=== PATIENT | female | born 1960 | race Caucasian/White ===

== ENCOUNTER → 2021-08-15 08:24 | Outpatient (CLI) | payer OTHER, SELFPAY ==
[2021-08-15 09:32] LABS: Add Manual Diff / Slide Review NO; Basophils Absolute Auto 0 /uL (0-100); Basophils Percent Auto 0.6 % (0-2); Eosinophils Absolute Auto 100 /uL (0-450); Eosinophils Percent Auto 1.3 % (2-4); Hematocrit 36.3 % (36-46); Hemoglobin 12.1 g/dL (12.0-16.0); Lymphocytes Absolute Auto 2900 /uL (1100-4500); Mean Corpuscular HGB Conc 33.5 % (30-36); Mean Corpuscular Hemoglobin 27.8 PG (26-34); Mean Corpuscular Volume 83.1 fL (80-100); Monocytes Absolute Auto 700 /uL (0-900); Monocytes Percent Auto 7.7 % (3-14); Neutrophils Absolute Auto 5300 /uL (1500-7000); Neutrophils Percent Auto 58.4 % (50-75); Platelet Count 322 X10^3/uL (150-400); Red Blood Cell Count 4.36 X10^6/uL (4.0-5.2); Red Cell Distribution Width 13.2 % (11.6-14.8)
[2021-08-15 09:47] LABS: HEMOLYSIS < 15 (0-50); Iron 45 ug/dL (37-170)
[2021-08-15 09:49] LABS: Alanine Aminotransferase 19 IU/L (<35); Albumin 3.7 g/dL (3.5-5.0); Albumin Globulin Ratio 1.2 (1.0-2.8); Alkaline Phosphatase 66 U/L (38-126); Aspartate Aminotransferase 23 IU/L (14-36); BUN Creatinine Ratio 17.7 (6-22); Bilirubin Total 0.5 mg/dL (0.2-1.3); Blood Urea Nitrogen 14 mg/dL (7-17); Calcium 8.7 mg/dL (8.4-10.2); Carbon Dioxide 26 mmol/L (22-32); Chloride 105 mmol/L (98-107); Cholesterol 152 mg/dL (140-199); Estimated Glomerular Filt Rate > 60 mL/min (>60); Globulin 3.2 g/dL (1.7-4.1); Glucose 94 mg/dL (70-100); HDL Cholesterol 42 mg/dL (40-60); HEMOLYSIS < 15 (0-50); LDL Cholesterol Calculated 77 mg/dL (<100); Sodium 138 mmol/L (137-145); Total Protein 6.9 g/dL (6.3-8.2); Triglycerides 164 mg/dL (35-150)
[2021-08-15 10:01] LABS: Percent Iron Saturation 10 % (15-50); Total Iron Binding Capacity 448 ug/dL (265-497); Transferrin 326 mg/dL (206-381)
[2021-08-15 10:24] LABS: TSH w/ Reflex to FT4 1.66 uIU/mL (0.47-4.68)
== END ==
PROVIDERS: PCP Internal Medicine; Referring Provider Internal Medicine; Visit Provider Internal Medicine
DX: E61.1 Iron deficiency (principal); K50.00 Crohn's disease of small intestine without complications; K91.30 Postprocedural intestinal obstruction, unspecified as to partial versus complete; K91.89 Other postprocedural complications and disorders of digestive system
CPT/HCPCS: 36415; 80053; 80061; 83540; 83550; 84443; 85025

== ENCOUNTER → 2023-01-01 08:51 | Outpatient (CLI) | payer OTHER, SELFPAY ==
[2023-01-01 10:29] LABS: Add Manual Diff / Slide Review NO; Basophils Absolute Auto 100 /uL (0-100); Basophils Percent Auto 0.8 % (0-2); Eosinophils Absolute Auto 200 /uL (0-450); Eosinophils Percent Auto 1.7 % (2-4); Hemoglobin 11.7 g/dL (12.0-16.0); Lymphocytes Absolute Auto 2600 /uL (1100-4500); Lymphocytes Percent Auto 26.1 % (25-40); Mean Corpuscular HGB Conc 33.3 % (30-36); Mean Corpuscular Hemoglobin 27.1 PG (26-34); Mean Corpuscular Volume 81.4 fL (80-100); Monocytes Absolute Auto 800 /uL (0-900); Monocytes Percent Auto 7.8 % (3-14); Neutrophils Absolute Auto 6200 /uL (1500-7000); Neutrophils Percent Auto 63.6 % (50-75); Platelet Count 354 X10^3/uL (150-400); Red Cell Distribution Width 13.8 % (11.6-14.8); White Blood Cell Count 9.8 X10^3/uL (4.5-11.0)
[2023-01-01 10:37] LABS: HEMOLYSIS < 15 (0-50); Iron 57 ug/dL (37-170)
[2023-01-01 10:50] LABS: Alanine Aminotransferase 17 IU/L (<35); Albumin 3.7 g/dL (3.5-5.0); Albumin Globulin Ratio 1.2 (1.0-2.8); Alkaline Phosphatase 74 U/L (38-126); Aspartate Aminotransferase 24 IU/L (14-36); BUN Creatinine Ratio 12.3 (6-22); Bilirubin Total 0.4 mg/dL (0.2-1.3); Blood Urea Nitrogen 9 mg/dL (7-17); Calcium 8.8 mg/dL (8.4-10.2); Carbon Dioxide 24 mmol/L (22-32); Chloride 105 mmol/L (98-107); Estimated Glomerular Filt Rate > 60 mL/min (>60); Glucose 88 mg/dL (80-110); HEMOLYSIS < 15 (0-50); Lipase 138 U/L (23-300); Potassium 4.1 mmol/L (3.4-5.1); Sodium 137 mmol/L (137-145); Total Protein 6.7 g/dL (6.3-8.2)
[2023-01-01 10:53] LABS: Percent Iron Saturation 12 % (15-50); Total Iron Binding Capacity 458 ug/dL (265-497); Transferrin 334 mg/dL (206-381)
== END ==
PROVIDERS: PCP Internal Medicine; Referring Provider Internal Medicine; Visit Provider Internal Medicine
DX: E61.1 Iron deficiency (principal); K50.00 Crohn's disease of small intestine without complications; K91.30 Postprocedural intestinal obstruction, unspecified as to partial versus complete; K91.89 Other postprocedural complications and disorders of digestive system
CPT/HCPCS: 36415; 80053; 83540; 83550; 83690; 85025

== ENCOUNTER → 2023-12-09 11:17 | Outpatient (CLI) | payer OTHER, SELFPAY ==
[2023-12-09 12:23] LABS: Add Manual Diff / Slide Review NO; Basophils Absolute Auto 100 /uL (0-100); Basophils Percent Auto 0.7 % (0-2); Eosinophils Absolute Auto 200 /uL (0-450); Eosinophils Percent Auto 1.5 % (2-4); Hematocrit 36.9 % (36-46); Hemoglobin 12.3 g/dL (12.0-16.0); Lymphocytes Absolute Auto 2800 /uL (1100-4500); Mean Corpuscular HGB Conc 33.4 % (30-36); Mean Corpuscular Hemoglobin 28.1 PG (26-34); Mean Corpuscular Volume 84.2 fL (80-100); Monocytes Absolute Auto 800 /uL (0-900); Monocytes Percent Auto 7.7 % (3-14); Neutrophils Absolute Auto 6600 /uL (1500-7000); Neutrophils Percent Auto 63.1 % (50-75); Platelet Count 332 X10^3/uL (150-400); Red Blood Cell Count 4.38 X10^6/uL (4.0-5.2); Red Cell Distribution Width 13.4 % (11.6-14.8); White Blood Cell Count 10.5 X10^3/uL (4.5-11.0)
[2023-12-09 12:36] LABS: HEMOLYSIS < 15 (0-50); Iron 111 ug/dL (37-170)
[2023-12-09 12:44] LABS: Alanine Aminotransferase 14 IU/L (<35); Albumin 3.9 g/dL (3.5-5.0); Albumin Globulin Ratio 1.2 (1.0-2.8); Alkaline Phosphatase 78 U/L (38-126); Aspartate Aminotransferase 25 IU/L (14-36); BUN Creatinine Ratio 12.5 (6-22); Bilirubin Total 0.5 mg/dL (0.2-1.3); Blood Urea Nitrogen 10 mg/dL (7-17); Calcium 8.8 mg/dL (8.4-10.2); Carbon Dioxide 23 mmol/L (22-32); Chloride 107 mmol/L (98-107); Estimated Glomerular Filt Rate > 60 mL/min (>60); Globulin 3.2 g/dL (1.7-4.1); Glucose 84 mg/dL (80-110); HEMOLYSIS < 15 (0-50); Potassium 3.9 mmol/L (3.4-5.1); Sodium 138 mmol/L (137-145); Total Protein 7.1 g/dL (6.3-8.2)
[2023-12-09 12:46] LABS: Transferrin 331 mg/dL (206-381)
[2023-12-09 13:08] LABS: TSH w/ Reflex to FT4 1.23 uIU/mL (0.47-4.68)
[2023-12-11 03:32] LABS: Percent Iron Saturation 27 % (15-50); Total Iron Binding Capacity 416 ug/dL (265-497)
== END ==
LOC: LAB 11:18
PROVIDERS: PCP Internal Medicine; Referring Provider Internal Medicine; Visit Provider Internal Medicine
DX: K50.90 Crohn's disease, unspecified, without complications (principal); E61.1 Iron deficiency; D64.9 Anemia, unspecified; E03.9 Hypothyroidism, unspecified
CPT/HCPCS: 36415; 80053; 83540; 83550; 84443; 85025

== ENCOUNTER 2024-04-04 17:22 | Inpatient (IN) | payer OTHER, SELFPAY ==
[2024-04-04] VITALS (7 sets, daily range): BP systolic 106–127; BP diastolic 55–68; PULSE 98–112; RESP 14–18; TEMP 37.3–37.5; O2SAT 96–100; BMI 20.5
--- NOTE | 2024-04-04 17:39 | EKG_ITS ---
[facility] [address] [address] Test Date: 2024-04-04 Pat Name: Eveline Argueta Department: [facility] Room: Gender: Female Medical Billing Specialist: ABDIRIZAK : 1960 Requested By: Order Number: [id number] Reading MD: Patric Tejeda MD Measurements Intervals [place] Rate: 98 P: 65 CO: 112 QRS: 37 QRSD: 74 T: 43 QT: 342 QTc: 436 Interpretive Statements Normal sinus rhythm Electronically Signed On 04-05-2024 7:46:22 PST by Patric Tejeda MD
[2024-04-04 18:15] LABS: Alanine Aminotransferase 17 IU/L (<35); Albumin 3.9 g/dL (3.5-5.0); Albumin Globulin Ratio 1.1 (1.0-2.8); Alkaline Phosphatase 81 U/L (38-126); Aspartate Aminotransferase 23 IU/L (14-36); BUN Creatinine Ratio 16.2 (6-22); Bilirubin Total 0.7 mg/dL (0.2-1.3); Blood Urea Nitrogen 12 mg/dL (7-17); Calcium 8.8 mg/dL (8.4-10.2); Carbon Dioxide 25 mmol/L (22-32); Chloride 101 mmol/L (98-107); Estimated Glomerular Filt Rate > 60 mL/min (>60); Globulin 3.7 g/dL (1.7-4.1); Glucose 112 mg/dL (80-110); HEMOLYSIS 19 (0-50); Lipase 39 U/L (23-300); Potassium 3.6 mmol/L (3.4-5.1); Sodium 133 mmol/L (137-145); Total Protein 7.6 g/dL (6.3-8.2)
--- NOTE | 2024-04-04 18:24 | DI.CT.S_ITS ---
PROCEDURE: CT ABDOMEN PELVIS W CON INDICATIONS: crohns dz, abd pain TECHNIQUE: After the administration of intravenous contrast, axial sections acquired from the lung bases to the pubic symphysis. Coronal and sagittal reformats were performed. For radiation dose reduction, the following was used: automated exposure control, adjustment of mA and/or kV according to patient size. COMPARISON: None. FINDINGS: Image quality: Diagnostic. Lower Chest: No significant findings. ABDOMEN: Liver: No solid mass. Scattered subcentimeter hypoattenuating lesions, too small to characterize by CT but probably small cysts. Gallbladder: No radiopaque gallstones or wall thickening. Biliary ducts: Very mild intrahepatic biliary irregularity. Pancreas: No ductal dilation. Spleen: Size is within normal limits. Adrenal Glands: No adrenal nodules. Kidneys and Ureters: No hydronephrosis. No solid mass. No complex renal cystic lesion which requires follow up. Stomach and Bowel: There are 2 segments of severe bowel wall thickening, located in the left mid abdomen measuring 2 cm and in the right lower quadrant measuring 15 cm (series 4, image 30). Wall thickness measures up to 1.2 cm. Wall ulceration of the dominant segment in the right abdomen is present (series 4, image 30). There is luminal narrowing with upstream dilation. Mesenteric edema is present. Peritoneum: Small amount of free fluid present. Ventral Wall: No significant ventral hernia. Abdominal Nodes: Enlarged mesenteric lymph nodes (series 2, image 79). Vessels: Aorta and inferior vena cava are normal in size. PELVIS: Pelvic Organs: Unremarkable. Bladder: No bladder wall thickening, accounting for underdistention. Pelvic Nodes: No enlarged lymph nodes. Miscellaneous: No inguinal hernias are seen. Bones: No aggressive osseous abnormality. No osteonecrosis of the femoral heads. No sacroiliitis. IMPRESSION: Acute exacerbation of inflammatory bowel disease, with 2 segments of severe bowel wall thickening, with luminal narrowing and upstream dilation concerning for stricture. There is moderate dilation of the large bowel as result. The dominant 15 cm segment of wall thickening demonstrates wall ulceration but no evidence of penetrating disease. Enlarged right lower quadrant lymph nodes, probably reactive. A lymphoproliferative disorder is less likely. Very mild intrahepatic biliary dilation, which may indicate PSC. Recommend outpatient MRCP or follow-up with GI. Dictated by: William Zhou M.D. on 04/04/2024 at 18:56 Approved by: William Zhou M.D. on 04/04/2024 at 19:02
--- NOTE | 2024-04-04 18:26 | ED.ABDPAIN ---
HPI - Abdominal Pain General Chief Complaint: Abdominal Pain Stated Complaint: Crohns symptoms, sent by [facility] Time Seen by Provider: 04/04/24 18:24 Source: patient Mode of arrival: Ambulatory History of Present Illness HPI narrative: 63-year-old female with history of Crohn's disease first diagnosed 1980, prior Crohns related abdominal surgeries in [place] and [place] in , series of surgical interventions [facility] 2011, stricture dilatation procedure 2011 recalled which was her last surgical intervention in [place], used to be on Humira but this was discontinued 2020, most recently followed by GI color consultant Sunny (Dr. Wilder, [facility]) with last visit a few months ago, was doing well off of any immunosuppressive therapy. Now having central abdominal pain since yesterday, some nausea without emesis. Last bowel movement yesterday was normal, no black or red color. No change in caliber stool. No injury trauma new activities. No household exposure to persons with similar symptoms. Denies cough, shortness of breath, dysuria, frequency of urination. Feels like she is likely passing gas Related Data Home Medications Medication Instructions Recorded Confirmed No Known Home Medications 01/07/23 12/09/23 Allergies Allergy/AdvReac Type Severity Reaction Status Date / Time metronidazole Allergy Severe Headache/Double Verified 04/04/24 17:35 Vision Review of Systems Review of Systems Narrative: see HPI Patient History Medical History COVID-19 Small bowel anastomotic stricture Iron deficiency Crohn's disease (~1980) Surgical History S/P exploratory laparotomy Social History household members: spouse Smoking Status: Never smoker Smoking Status: Never smoker Exam Narrative Exam Narrative: GENERAL: Well-developed patient, in mild distress. HEAD: Atraumatic. Normocephalic. EYES: Pupils equal round and reactive. Extraocular motions intact. No scleral icterus. No injection or drainage. ENT: Nose without bleeding, purulent drainage. Throat without erythema, tonsillar hypertrophy or exudate. Airway patent. NECK: Trachea midline. Non tender CARDIOVASCULAR: Regular rate and rhythm without murmurs, gallops, or rubs. RESPIRATORY: Clear to auscultation. Breath sounds equal bilaterally. No wheezes, rales, or rhonchi. GASTROINTESTINAL: Abdomen nondistended, scars, no obvious incisional hernia, mild tenderness central more so than upper or lower or lateral. EXTREMITIES: No edema or joint tenderness. BACK: Nontender without deformity or crepitance. No flank tenderness. NEURO: AOx3. Motor functions grossly nonfocal SKIN: No rash or erythema of visible areas Initial Vital Signs Initial Vital Signs: Vital Signs Temperature 99.1 F 04/04/24 17:35 Pulse Rate 104 H 04/04/24 17:35 Respiratory Rate 14 04/04/24 17:35 Blood Pressure 106/59 L 04/04/24 17:35 Pulse Oximetry 99 04/04/24 17:35 Oxygen Delivery Method Room Air 04/04/24 17:35 Course Orders Ordered: Acetaminophen (Acetaminophen 325 Mg Tablet) 650 mg PO Q6H PRN PRN Reason: Fever/Mild Pain (1-3) Al Hydrox/Mg Hydrox/Simethicone (Mag Hydrox/Alum/Simeth 30 Ml Udc) 30 ml PO Q6HR PRN PRN Reason: Dyspepsia Enoxaparin Sodium (Enoxaparin 40 Mg/0.4 Ml Syringe) 40 mg SUBCUT DAILY [facility] Hydromorphone HCl (Hydromorphone 0.5 Mg Inj) 0.5 mg IV Q2H PRN PRN Reason: Pain, Severe (7-10) Sodium Chloride (Normal Saline 0.9%) 1,000 mls @ 100 mls/hr IV CONT [facility] Last Admin: 04/04/24 23:21 Dose: 100 mls/hr Documented By: Methylprednisolone (Methylprednisolone 125 Mg/2 Ml Vial) 125 mg IV Q6H [facility] Last Admin: 04/05/24 04:22 Dose: 125 mg Documented By: Admin: 04/04/24 23:22 Dose: Not Given Documented By: MS Naloxone HCl (Naloxone 0.4 Mg/Ml Vial) 0.2 mg IV Q2MIN PRN PRN Reason: Opiate Reversal Ondansetron HCl (Ondansetron 4 Mg/2 Ml Inj) 4 mg IV NOW PRN PRN Reason: Nausea And Vomiting Ondansetron HCl (Ondansetron 4 Mg Odt) 4 mg PO NOW PRN PRN Reason: Nausea And Vomiting Ondansetron HCl (Ondansetron 4 Mg/2 Ml Inj) 4 mg IV Q8HR PRN PRN Reason: Nausea And Vomiting Sodium Chloride (Sodium Chloride 0.9% Flush) 10 ml IV BID ABEL Sodium Chloride (Sodium Chloride 0.9% Flush) 10 ml IV PRN PRN PRN Reason: Flush Discontinued Medications Methylprednisolone (Methylprednisolone 125 Mg/2 Ml Vial) 125 mg IV NOW ONE Stop: 04/04/24 21:17 Last Admin: 04/04/24 21:30 Dose: 125 mg Documented By: SOCRATES Vital Signs Vital signs: Vital Signs - 8 hr 04/04/24 21:33 04/04/24 21:34 04/04/24 21:34 Pulse Rate 101 H 101 H Respiratory Rate 16 Blood Pressure 113/60 Pulse Oximetry 97 96 MDM - Abdominal Pain Lab Data Attestation: I reviewed the patient's lab results. Lab results narrative: White blood cell count 09423, hemoglobin 13, platelets adequate, basic metabolic panel unremarkable. Liver functions lipase normal. 04/04/24 17:52 04/04/24 17:52 Labs: Lab Results 04/04/24 04/04/24 Range/Units 17:52 20:00 WBC 13.1 H (4.5-11.0) X10^3/uL RBC 4.72 (4.0-5.2) X10^6/uL Hgb 13.1 (12.0-16.0) g/dL Hct 39.8 (36-46) % MCV 84.3 (80-100) fL MCH 27.8 (26-34) PG MCHC 33.0 (30-36) % RDW 12.6 (11.6-14.8) % Plt Count 383 (150-400) X10^3/uL Neut % (Auto) 77.1 H (50-75) % Lymph % (Auto) 12.5 L (25-40) % Kem[place] % (Auto) 9.5 (3-14) % Eos % (Auto) 0.7 L (2-4) % Baso % (Auto) 0.2 (0-2) % Neut # (Auto) 92494 H (6219-7651) /uL Lymph # (Auto) 1600 (3550-8627) /uL Kemper # (Auto) 1300 H (0-900) /uL Eos # (Auto) 100 (0-450) /uL Baso # (Auto) 0 (0-100) /uL Sodium 133 L (137-145) mmol/L Potassium 3.6 (3.4-5.1) mmol/L Chloride 101 (98-107) mmol/L Carbon Dioxide 25 (22-32) mmol/L BUN 12 (7-17) mg/dL Creatinine 0.74 (0.52-1.04) mg/dL Estimated GFR > 60 (>60) mL/min BUN/Creatinine Ratio 16.2 (6-22) Glucose 112 H (80-110) mg/dL Calcium 8.8 (8.4-10.2) mg/dL Total Bilirubin 0.7 (0.2-1.3) mg/dL AST 23 (14-36) IU/L ALT 17 (<35) IU/L Alkaline Phosphatase 81 (38-126) U/L Total Protein 7.6 (6.3-8.2) g/dL Albumin 3.9 (3.5-5.0) g/dL Globulin 3.7 (1.7-4.1) g/dL Albumin/Globulin Ratio 1.1 (1.0-2.8) Lipase 39 (23-300) U/L Ur Bilirubin Confirm Negative (Negative) Urine RBC 1-5/hpf (0-5/HPF) Urine WBC 0-1/hpf (0-5/HPF) Ur Squamous Epith Cells 0-1 /hpf (0-5/HPF) Calcium Oxalate Crystal Occasional H Urine Bacteria None seen (None) Ur Culture Indicated? Cult not indicated Vol Urine Centrifuged 10ml (spun) Imaging Data CT scan - abdomen/pelvis: Radiologist's Impression: Close Abdomen/Pelvis CT (Signed) William Zhou - 04/04/24 Launch?[place] [id number] CT Scan Report Signed Patient: Eveline Argueta MR#: [id number] : 1960 Acct:[id number] Age/Sex: 63 / F Date of Service: 04/04/24 Loc: ED Accession Number: [id number] Procedure: CT abdomen pelvis w con Ordering Provider: Eduar Brizuela MD PROCEDURE: CT ABDOMEN PELVIS W CON INDICATIONS: crohns dz, abd pain TECHNIQUE: After the administration of intravenous contrast, axial sections acquired from the lung bases to the pubic symphysis. Coronal and sagittal reformats were performed. For radiation dose reduction, the following was used: automated exposure control, adjustment of mA and/or kV according to patient size. COMPARISON: None. FINDINGS: Image quality: Diagnostic. Lower Chest: No significant findings. ABDOMEN: Liver: No solid mass. Scattered subcentimeter hypoattenuating lesions, too small to characterize by CT but probably small cysts. Gallbladder: No radiopaque gallstones or wall thickening. Biliary ducts: Very mild intrahepatic biliary irregularity. Pancreas: No ductal dilation. Spleen: Size is within normal limits. Adrenal Glands: No adrenal nodules. Kidneys and Ureters: No hydronephrosis. No solid mass. No complex renal cystic lesion which requires follow up. Stomach and Bowel: There are 2 segments of severe bowel wall thickening, located in the left mid abdomen measuring 2 cm and in the right lower quadrant measuring 15 cm (series 4, image 30). Wall thickness measures up to 1.2 cm. Wall ulceration of the dominant segment in the right abdomen is present (series 4, image 30). There is luminal narrowing with upstream dilation. Mesenteric edema is present. Peritoneum: Small amount of free fluid present. Ventral Wall: No significant ventral hernia. Abdominal Nodes: Enlarged mesenteric lymph nodes (series 2, image 79). Vessels: Aorta and inferior vena cava are normal in size. PELVIS: Pelvic Organs: Unremarkable. Bladder: No bladder wall thickening, accounting for underdistention. Pelvic Nodes: No enlarged lymph nodes. Miscellaneous: No inguinal hernias are seen. Bones: No aggressive osseous abnormality. No osteonecrosis of the femoral heads. No sacroiliitis. IMPRESSION: Acute exacerbation of inflammatory bowel disease, with 2 segments of severe bowel wall thickening, with luminal narrowing and upstream dilation concerning for stricture. There is moderate dilation of the large bowel as result. The dominant 15 cm segment of wall thickening demonstrates wall ulceration but no evidence of penetrating disease. Enlarged right lower quadrant lymph nodes, probably reactive. A lymphoproliferative disorder is less likely. Very mild intrahepatic biliary dilation, which may indicate PSC. Recommend outpatient MRCP or follow-up with GI. Dictated by: William Zhou M.D. on 04/04/2024 at 18:56 Approved by: William Zhou M.D. on 04/04/2024 at 19:02 ECG Data Attestation: I personally reviewed and interpreted this ECG as follows: Interpretation: Normal sinus rhythm rate of 98, no obvious ST segment elevation or depression changes. MN 112, QRS 74, QTC 436 MDM Narrative Medical decision making narrative: 63-year-old female with history of Crohn's disease, off Humira since 2020, numerous bowel surgeries, last surgical intervention 2011 [facility], followed by Sunny [facility]rough GI doc giovanni recently, now with abdominal pain increasing since yesterday. Afebrile, sirs screen negative. Some tenderness abdominal exam. Labs pending. GFR favorable. CT abdomen and pelvis with IV contrast ordered. IV Dilaudid/Zofran, symptoms improved. 2114, case discussed with ALEK Christie, advises IV steroid, can treat as an outpatient, versus serial IV dose steroid as an inpatient if patient feels more comfortable, no transfer indicated at this time. He left a note in their chart system for the patient's own GI doctor Meño Recommendations relayed to patient, IV Solu-Medrol dose, she prefers to stay for repeated IV Solu-Medrol doses to transition to oral steroids as an outpatient, with IV fluids and further pain medication management. PCP Ileana, we will contact him or cross covering physician regarding admission here. 2129, case discussed with cross-cover physician Dr. Olsen, accepts patient for admission Discharge Plan Departure Patient Disposition: Admitted as Observation Clinical Impression: Crohn's disease, Abdominal pain Admit Date/Time: 04/04/24 21:36 Admit Provider: Emmanuel Olsen
[2024-04-04 18:39] LABS: Add Manual Diff / Slide Review NO; Basophils Absolute Auto 0 /uL (0-100); Basophils Percent Auto 0.2 % (0-2); Eosinophils Absolute Auto 100 /uL (0-450); Eosinophils Percent Auto 0.7 % (2-4); Hematocrit 39.8 % (36-46); Hemoglobin 13.1 g/dL (12.0-16.0); Lymphocytes Absolute Auto 1600 /uL (1100-4500); Lymphocytes Percent Auto 12.5 % (25-40); Mean Corpuscular Hemoglobin 27.8 PG (26-34); Mean Corpuscular Volume 84.3 fL (80-100); Monocytes Absolute Auto 1300 /uL (0-900); Monocytes Percent Auto 9.5 % (3-14); Neutrophils Absolute Auto 10100 /uL (1500-7000); Neutrophils Percent Auto 77.1 % (50-75); Platelet Count 383 X10^3/uL (150-400); Red Blood Cell Count 4.72 X10^6/uL (4.0-5.2); Red Cell Distribution Width 12.6 % (11.6-14.8); White Blood Cell Count 13.1 X10^3/uL (4.5-11.0)
[2024-04-04] MEDS: methylPREDNISolone 125 MG/2 ML VIAL IV (21:30)
[2024-04-04 22:23] LABS: Ictotest Urine Negative (Negative); Urine Volume 10mL (spun)
[2024-04-04 22:24] LABS: Bacteria Urine None Seen; Calcium Oxalate Crystals Urine Occasional; Culture Indicated Urine Cult Not Indicated; RBC Urine 1-5/HPF (0-5/HPF); Squamous Epithelial Cell Urine 0-1 /HPF (0-5/HPF); WBC Urine 0-1/HPF (0-5/HPF)
[2024-04-04] MEDS: SODIUM CHLORIDE 0.9% 1,000 ML 100 ML IV (23:21)
--- NOTE | 2024-04-05 03:12 | PC.NURSE ---
night guard RN contacted contract assistant provider for pain control medication. (in [facility]). placed pain IV medications.
[2024-04-05] MEDS: methylPREDNISolone 125 MG/2 ML VIAL IV ×4 (04:22→22:09)
[2024-04-05 06:31] LABS: Add Manual Diff / Slide Review NO; Basophils Absolute Auto 0 /uL (0-100); Basophils Percent Auto 0.2 % (0-2); Eosinophils Absolute Auto 0 /uL (0-450); Hematocrit 38.1 % (36-46); Hemoglobin 12.8 g/dL (12.0-16.0); Lymphocytes Absolute Auto 1800 /uL (1100-4500); Lymphocytes Percent Auto 18.7 % (25-40); Mean Corpuscular HGB Conc 33.7 % (30-36); Mean Corpuscular Hemoglobin 28.1 PG (26-34); Mean Corpuscular Volume 83.5 fL (80-100); Monocytes Absolute Auto 100 /uL (0-900); Monocytes Percent Auto 1.2 % (3-14); Neutrophils Absolute Auto 7500 /uL (1500-7000); Neutrophils Percent Auto 79.9 % (50-75); Platelet Count 336 X10^3/uL (150-400); Red Blood Cell Count 4.56 X10^6/uL (4.0-5.2); Red Cell Distribution Width 12.6 % (11.6-14.8); White Blood Cell Count 9.4 X10^3/uL (4.5-11.0)
[2024-04-05 06:49] LABS: Alanine Aminotransferase 17 IU/L (<35); Albumin 3.6 g/dL (3.5-5.0); Albumin Globulin Ratio 1.1 (1.0-2.8); Alkaline Phosphatase 86 U/L (38-126); Aspartate Aminotransferase 22 IU/L (14-36); BUN Creatinine Ratio 23.1 (6-22); Bilirubin Total 0.7 mg/dL (0.2-1.3); Blood Urea Nitrogen 15 mg/dL (7-17); Calcium 8.2 mg/dL (8.4-10.2); Carbon Dioxide 18 mmol/L (22-32); Chloride 108 mmol/L (98-107); Estimated Glomerular Filt Rate > 60 mL/min (>60); Globulin 3.3 g/dL (1.7-4.1); Glucose 130 mg/dL (80-110); HEMOLYSIS < 15 (0-50); Potassium 3.7 mmol/L (3.4-5.1); Sodium 137 mmol/L (137-145); Total Protein 6.9 g/dL (6.3-8.2)
--- NOTE | 2024-04-05 07:33 | P.HP_ITS ---
History of Present Illness History of Present Illness Date Patient Seen: 04/05/24 Time Patient Seen: 07:34 Chief complaint: Crohn's symptoms, sent by [facility] Narrative: 63 year old female with longstanding history of Crohn's disease, seen by me in the outpatient clinic only 3 or 4 times, recently established care with Gastroenterology in [place] as a new local provider She presented with central abdominal pain with nausea but no emesis. Reporting last bowel movement on the 03 of April entirely normal. This is all consistent with her prior Crohn's disease. She presented to the ER in this status and was evaluated. ER evaluation demonstrated evidence of acute active inflammatory bowel disease on CT imaging with maybe even early stricture formation. 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 She was previously on Humira but has been off that is since 2020, stopped in part because of concerns regarding the COVID pandemic at that time. Prior surgeries were at the [facility] and prior surgeon partner (before moving to this [facility]) was in [place]. Last surgery was several years ago however her Crohn's appears to have been relatively unremarkable in recent times. [facility] Medical History COVID-19 Small bowel anastomotic stricture Iron deficiency Crohn's disease (~1980) Surgical History S/P exploratory laparotomy Social History household members: spouse Smoking Status: Never smoker Meds Home Medications and Allergies Home Medications Medication Instructions Recorded Confirmed Type No Known Home Medications 01/07/23 12/09/23 History Allergies Allergy/AdvReac Type Severity Reaction Status Date / Time metronidazole Allergy Severe Headache/Double Verified 04/04/24 17:35 Vision Review of Systems Review of Systems ROS: Yes All systems reviewed with the patient and are negative except as otherwise documented Exam Vital Signs (past 8 hours): Oxygen Delivery Method Room Air Oxygen Flow Rate 0 Narrative Exam Narrative: Non acutely ill-appearing female sitting up in her hospital bed HEENT-unremarkable Neck-no lymphadenopathy Lungs-clear Heart-regular rate and rhythm no murmur Abdomen-positive bowel tones minimal tenderness to deep palpation no rebound or guarding present Objective Labs 04/05/24 06:00 04/05/24 06:00 Labs: Laboratory Results - last 24 hr 04/04/24 04/04/24 04/05/24 17:52 20:00 06:00 WBC 13.1 H 9.4 RBC 4.72 4.56 Hgb 13.1 12.8 Hct 39.8 38.1 MCV 84.3 83.5 MCH 27.8 28.1 MCHC 33.0 33.7 RDW 12.6 12.6 Plt Count 383 336 Neut % (Auto) 77.1 H 79.9 H Lymph % (Auto) 12.5 L 18.7 L Butts % (Auto) 9.5 1.2 L Eos % (Auto) 0.7 L 0.0 L Baso % (Auto) 0.2 0.2 Neut # (Auto) 24683 H 7500 H Lymph # (Auto) 1600 1800 Butts # (Auto) 1300 H 100 Eos # (Auto) 100 0 Baso # (Auto) 0 0 Sodium 133 L 137 Potassium 3.6 3.7 Chloride 101 108 H Carbon Dioxide 25 18 L BUN 12 15 Creatinine 0.74 0.65 Estimated GFR > 60 > 60 BUN/Creatinine Ratio 16.2 23.1 H Glucose 112 H 130 H Calcium 8.8 8.2 L Total Bilirubin 0.7 0.7 AST 23 22 ALT 17 17 Alkaline Phosphatase 81 86 Total Protein 7.6 6.9 Albumin 3.9 3.6 Globulin 3.7 3.3 Albumin/Globulin Ratio 1.1 1.1 Lipase 39 Ur Bilirubin Confirm Negative Urine RBC 1-5/hpf Urine WBC 0-1/hpf Ur Squamous Epith Cells 0-1 /hpf Calcium Oxalate Crystal Occasional H Urine Bacteria None seen Ur Culture Indicated? Cult not indicated Vol Urine Centrifuged 10ml (spun) Assessment & Plan Assessment & Plan narrative: 1. Crohn's-patient with active Crohn's presumably based on her history of Crohn's disease and evidence active inflammatory bowel disease on CT imaging of her abdomen. Parental steroids certainly makes sense and hopefully will calm down her disease and she can be transitioned to oral steroids and be further managed as an outpatient by her Gastroenterology group. As part of that she should only have a liquid diet until her abdominal symptoms are notably improved. Fortunately no evidence of any serious complicating factor at this time. Continue to monitor for evidence of obstruction perforation etcetera. 2. VTE prophylaxis-mechanical devices appropriate. Chemo prophylaxis in my opinion not appropriate at this time until improvement in inflammatory bowel disease with issues around bleeding and Crohn's disease and possible need for surgical intervention etcetera. 3. Code status-patient requests full code in the event of a sudden cardiac or respiratory arrest which is entirely appropriate and certainly not anticipated at this time Time-Based Coding :: [TOTAL MINUTES] spent with patient and on the chart (including review of chart, obtaining history, exam, reviewing outside data, placing orders, documenting exam and treatment plan, and counseling patient) on [DATE]. PROFEE Charge Codes Initial inpatient/observation care: [id number]
[2024-04-05 08:00] VITALS: BP 105/56; PULSE 86; RESP 18; TEMP 36.1; O2SAT 98
[2024-04-05] MEDS: SODIUM CHLORIDE 0.9% 1,000 ML 100 ML IV (08:27)
[2024-04-05 08:37] VITALS: O2SAT 97
--- NOTE | 2024-04-05 12:20 | DIET.CONS ---
Dietary Consultation Note Admission Date: 04/04/2024 21:36 Assessment: 63 y F presented for abd pain and nausea. PMH of Crohn's disease. RD screened for low MNA score. Met w/ pt at bedside who reports a gradual decrease in PO intakes over the course of the last 6 weeks, with the last 2 weeks noting skipping more meals with between 50-75% reduced PO intakes d/t abdominal symptoms. Notes best tolerates yogurts, fairlife drinks, soft, non-spicy foods doing flares. In last 6 weeks was doing yogurts, sometimes softer dinner, and cheese and crackers, with fairlife protein drinks every once in awhile (not daily). Notes 5 lb weight loss and decreased strength as a result. NFPE performed. No significant results. Ht: 152.4 cm Wt: 46 kg BMI: 20.5 UBW: 47.727 kg per pt 6 wks ago (-4% weight loss within 6 wks, non-severe), 48.534 kg on 12/09/23 (-5% weight loss within 4 months, non-severe) Last BM: 04/03/24 (04/04/24 22:07) MNA: 9 Med Score: 20 Diet: 04/04/24 Breakfast Clear Liquid Diet Diet Modifications: Labs: RBC 4.56 X10^6/uL (4.0-5.2) 04/05/24 06:00 Hgb 12.8 g/dL (12.0-16.0) 04/05/24 06:00 Hct 38.1 % (36-46) 04/05/24 06:00 Creatinine 0.65 mg/dL (0.52-1.04) 04/05/24 06:00 Nutrition Diagnosis: Inadequate oral intake r/t alterations in GI tract aeb <75% estimated energy intake for 2 weeks, Crohn's disease Unintentional weight loss r/t inadequate oral intake aeb 4% loss in 6 weeks (non-severe) Interventions: f/u for diet advancement, answered questions regarding meeting EER when pt can tolerate diet EER: 1400 kcals (30 kcals/kg per BMI), 50-60 g protein (1-1.25 g/kg per IBD) Monitoring/Evaluations: f/u for diet advancement Electronically Signed by: Lee Ann Rodriguez 04/05/24 12:20 Clinical Diet[address] [address]
--- NOTE | 2024-04-05 14:16 | CM.DANOTE ---
Initial DCP Assessment Visit Note Reviewed EMR and team rounds for status updates. Met with pt at bedside to introduce self and role, pt was found to be alert/oriented, able to engage in visit and discuss her plan for home d/c. Pt resides in her own home with her spouse and elderly mother, her spouse will be transporting her home tomorrow after being medically cleared for d/c. Payor: [facility] PCP: Dr. Tejeda Pt is a 63 year-old F with a hx of Crohn's disease and Crohn's related abdominal surgeries. She presented to the ED last evening with acute abdominal pain and and nausea. She shared that it's been several years since she has had a Crohn's flare-up, and was able to stop taking immunosuppressive therapy, and was was last seen by her GI provider in [place] just a few months ago. GI recommended to start pt on IV steroids, pain meds, and Zofran, and to admit for further monitoring and tx. Today, pt states that she is no longer having abdominal pain, but feels weak and sore from all of the stomach cramping that she had been having. Her 92-year-old mother lives w/her, and incidentally was having a new heart valve surgery today down in [place]. Pt's brother and [id number] have flown into town, and will plan to care for pt's mother in order for pt to recover from her own flare-up until she is stronger. DCP will continue to monitor for any d/c recommendations and needs prior to her departure. Discharge Planning/Care Management CM Discharge Assessment Start: 04/05/24 14:14 Freq: Status: Active Protocol: Document 04/05/24 14:14 DPL (Rec: 04/05/24 14:16 DPL [id number]) Discharge Planning Assessment Assigned C Software Developer FELICIA Thomas Advance Directives? No History Provided By Patient,Medical Record Has Patient been admitted in last 30 No days? Prior Living Arrangements House Household Members spouse,family Comment Pt also cares for her elderly mother. Type of transporation used prior to Drives own vehicle admit Independent with ADL's Yes Is patient alert and oriented? Yes Caregiver for Another Yes Comment N/A Comment OP Gastroenterology Barriers to Discharge No Discharge Plan Home Transportation Arrangement Spouse Referrals Initiated None needed Whiteboard Updated in Patient Room with Yes name and ext. # of C Software Developer Review Status In Process Please Provide Date Initial DC 04/05/24 Assessment Was Performed
[2024-04-05 16:00] VITALS: BP 110/79; PULSE 74; RESP 18; TEMP 36.4; O2SAT 99
[2024-04-05] MEDS: ACETAMINOPHEN 325 MG TABLET 650 MG PO (16:36)
[2024-04-05 20:00] VITALS: O2SAT 96
[2024-04-05 20:16] VITALS: BP 100/63; PULSE 75; RESP 18; TEMP 36.4; O2SAT 96
[2024-04-05] MEDS: SODIUM CHLORIDE 0.9% FLUSH 10 ML IV (21:00)
[2024-04-06 02:00] VITALS: BP 95/60; PULSE 71; RESP 18; TEMP 36.6; O2SAT 96
[2024-04-06] MEDS: methylPREDNISolone 125 MG/2 ML VIAL IV ×2 (04:07→09:39)
[2024-04-06 08:00] VITALS: BP 98/62; PULSE 68; RESP 15; TEMP 36.3; O2SAT 97
--- NOTE | 2024-04-06 08:18 | PM.DS.1 ---
History of Present Illness History of Present Illness Chief complaint: Crohn's symptoms, sent by [facility] Narrative: 63 year old female with longstanding history of Crohn's disease, seen by me in the outpatient clinic only 3 or 4 times, recently established care with Gastroenterology in [place] as a new local provider She presented with central abdominal pain with nausea but no emesis. Reporting last bowel movement on the 03 of April entirely normal. This is all consistent with her prior Crohn's disease. She presented to the ER in this status and was evaluated. ER evaluation demonstrated evidence of acute active inflammatory bowel disease on CT imaging with maybe even early stricture formation. 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 She was previously on Humira but has been off that is since 2020, stopped in part because of concerns regarding the COVID pandemic at that time. Prior surgeries were at the [facility] and prior phytochemistry professor (before moving to this [facility]) was in [place]. Last surgery was several years ago however her Crohn's appears to have been relatively unremarkable in recent times. Discharge Providers Provider Date of admission: 04/04/24 21:36 Discharge Date: 04/06/24 Primary care physician: Patric Tejeda MD Discharge provider: Patric Tejeda MD Summary Hospital Course Discharge Diagnosis: 1. Crohn's disease with active flare 2. Abdominal pain 3. Nausea Hospital Course: As above patient was admitted to the hospital with abdominal pain some mild nausea. Imaging with CT suggested active inflammatory bowel disease of the small intestine could not rule out stricture formation or stricture least as a component of findings. She was given a dose of IV methylprednisolone and after consultation with Gastroenterology was elected to admit her to the hospital to continue parental steroids with plan for early discharge to continue on oral steroids and close follow up with Gastroenterology in [place] Patient's clinical course in the hospital was pretty unremarkable. She had some improvement in her GI symptoms although not dramatic. She was maintained on clear liquid diet for the duration of her hospitalization and this will be slowly advanced as an outpatient upon discharge She had no side effects or issues with the methylprednisolone She will be continued on prednisone as noted below Patient will be seen in close follow-up by both her PCP and hopefully Gastroenterology Status at Discharge Cognitive/behavioral status at discharge: at baseline, oriented Functional status at discharge: independent ambulation Overall status at discharge: patient is progressing back to baseline Time Spent with Patient Time spent: Less than 30 minutes Exam Vital Signs (past 8 hours): - 04/06/24 02:00 Temperature 98 F Pulse Rate 71 Respiratory Rate 18 Blood Pressure 95/60 Pulse Oximetry 96 Oxygen Flow Rate 0 Oxygen Delivery Method Room Air Oxygen Flow Rate 0 Objective Labs 04/05/24 06:00 04/05/24 06:00 [facility] Medical History COVID-19 Small bowel anastomotic stricture Iron deficiency Crohn's disease (~1980) Surgical History S/P exploratory laparotomy Social History household members: spouse and family Smoking Status: Never smoker Discharge Assessment & Plan Assessment and Plan Plan of Treatment: Prednisone 60 mg a day for 5 days and 40 mg a day for 5 days then 20 mg daily. She will be seen right around the time she drops from 40-20 mg a day to ensure she was improving that that is still makes sense. She was slowly advanced her diet from current clear liquids to more complex liquids and more complex solids and foods avoiding high residue kind of things for now, similar what she has been doing on her own for the last several months as she was had some minor flaring kind of symptoms since November. Patient will be seen in the clinic within the next 2 weeks and will have hospital reach out to try and establish an appointment with her phytochemistry professor in the same timeframe. Patient knows to call if she was not having him proved symptoms or has worsening symptoms at all Discharge Plan Discharge Plan Patient Disposition: Home Discharge orders & Medications Prescriptions: New prednisone 20 mg tablet 20 - 60 mg PO DAILY Qty: 60 3RF Rx Instructions: take 3 tabs (60mg) daily for 5 days, then 2 tabs (40mg) daily for 5 days, then 20mg daily or as per physician Follow up/Referrals: Leonidas Wilder, [Non-Staff] - 2 Weeks (f/u Crohn's flare/hospitalization) Patric Tejeda MD [Primary Care Provider] - 2 Weeks (1-2 weeks) Discharge Health Status Multidrug resistant organism: No MDRO Diet/Activity/Treatments Diet: Diet as Tolerated Diet comment: slowly advance from clears to low residue type diet Skin/Wound/Dressing Care Report to your healthcare provider any signs of infection, such as:: chills, fever and increased pain Visit Report/Discharge Packet Stand Alone Forms: Patient Portal/API Discharge Data Primary Care Provider: Patric Tejeda
[2024-04-06 08:32] VITALS: O2SAT 98
[2024-04-06] MEDS: SODIUM CHLORIDE 0.9% FLUSH 10 ML IV (09:39)
== END 2024-04-06 10:15 | disposition home or self-care (01) | DRG 387 ==
LOC: ED 21:37 → AC 04-05 07:29
PROVIDERS: Emergency Medicine; Admitting Provider Family Medicine; Emergency Provider Emergency Medicine; PCP Internal Medicine; Referring Provider Emergency Medicine; Visit Provider Internal Medicine
DX: K50.90 Crohn's disease, unspecified, without complications (principal); R11.0 Nausea; Z90.49 Acquired absence of other specified parts of digestive tract; Z98.890 Other specified postprocedural states
CPT/HCPCS: 36415; 74177; 80053; 81003; 81015; 83690; 85025; 87086; 93005; 93010; 96374; 99222; 99238; 99284; 99285; G0378; J2919; Q9967

== ENCOUNTER → 2024-08-10 16:43 | Outpatient (CLI) | payer OTHER, SELFPAY ==
[2024-05-09 11:59] VITALS: BMI 20.5
--- NOTE | 2024-08-10 16:44 | DI.MG.S_ITS ---
MM screening mammo BI: 08/10/2024. BI-RADS: 1 CLINICAL: 63-year old female for bilateral screening mammogram. Tyrer-Cuzick lifetime risk of 7.8%. No personal or first-degree family history of breast cancer. Current reported family history of breast cancer: paternal aunt. The patient had a prior left breast biopsy. PRIOR EXAMS: 10/03/2016, 04/09/2014, 11/30/2012. MAMMOGRAPHY TECHNIQUE: 2D and 3D (tomosynthesis) digital mammographic views obtained, with additional images as needed for full coverage. Current study was also evaluated with a Computer Aided Detection (CAD) system. DENSITY C. The breasts are heterogeneously dense, which may obscure small masses. MAMMOGRAPHY FINDINGS Bilateral: No suspicious mass, asymmetry, microcalcification, or other abnormality seen. No significant change from comparison. IMPRESSION: * No evidence of malignancy. RECOMMENDATIONS Bilateral * Annual screening mammography. OVERALL ASSESSMENT CATEGORY BI-RADS-1: Negative. The [employer] recommends annual screening mammography beginning at age 40 for women with average risk of breast cancer. ELECTRONICALLY SIGNED: Maye Medina M.D. on 08/11/2024 at 01:37:34 PM PT Interpreting Station ID: [id number]
== END ==
LOC: MAMMO 16:43
PROVIDERS: PCP Internal Medicine; Referring Provider Internal Medicine; Visit Provider Internal Medicine
DX: Z12.31 Encounter for screening mammogram for malignant neoplasm of breast (principal); R92.333 Mammographic heterogeneous density, bilateral breasts; Z80.3 Family history of malignant neoplasm of breast
CPT/HCPCS: 77063; 77067